=== PATIENT | male | born 1970 | race African-American/Black ===

== ENCOUNTER 2022-10-22 20:40 | Emergency (ER) | payer OTHER, SELFPAY ==
[2022-10-22 20:44] VITALS: BP 139/80; PULSE 70; RESP 16; TEMP 36.3; O2SAT 100
--- NOTE | 2022-10-22 21:56 | PC.NURSE ---
Patient is unable to see with his right eye and has been having discharge since yesterday. Patient states he noticed the discharge on his contact when he removed it. Patient's eye is not visibly red or any drainage seen by this RN
--- NOTE | 2022-10-22 22:55 | ED.EYEPROB ---
HPI - Eye Problem General Chief complaint: Eye Problems Stated complaint: eye infection Time Seen by Provider: 10/22/22 22:01 Source: patient Mode of arrival: ambulatory Limitations: no limitations History of Present Illness HPI Narrative: Patient is a 52 y/o male who presents to the ED with c/o L eye drainage. Patient reports having mild white discharge from his left eye for the past 2 days. He states he initially had a mild foreign body sensation, but denies any pain or discomfort currently. Patient is blind in his right eye. He wears contacts in his left eye. He denies changes in his vision in his left eye. He denies any fever. Related Data Allergies Allergy/AdvReac Type Severity Reaction Status Date / Time No Known Allergies Allergy Verified 10/22/22 20:42 Review of Systems Review of Systems: CONSTITUTIONAL: Denies fever, chills, or sweats. EYES: Reports left eye discharge. Denies visual changes. CARDIOVASCULAR: Denies chest pain. RESPIRATORY: Denies cough or dyspnea. SKIN: Denies rash or itching. All systems reviewed & are unremarkable except as noted in HPI and below PMFSH Past Medical History Medical History (Updated 10/22/22 @ 23:45 by Ayanna Barajas PA-C) Blindness of right eye Surgical History Surgical History (Updated 10/22/22 @ 23:45 by Ayanna Barajas PA-C) No pertinent past surgical history Social History Social History (Updated 10/22/22 @ 23:45 by Ayanna Barajas PA-C) Smoking status: Never smoker Exam Narrative: GENERAL: Well appearing, well-nourished, non-toxic, in no acute distress. HEAD: Normocephalic, atraumatic. EYES: PERRLA, EOMI. Minimal conjunctival injection of left eye. Mild amount of white discharge collected in corners of eyes. No matting of eyelids/eyelashes. No periorbital swelling. No discharge of R eye. No hyphema. No conjunctival hemorrhage. No signs of globe disruption or involvement. NECK: Supple. No adenopathy, no masses. RESPIRATORY: Airway patent, respirations nonlabored. CARDIOVASCULAR: Regular rate and rhythm without murmurs, rubs, or gallops. Radial pulses 2+ and equal bilaterally. MUSCULOSKELETAL: Moves all extremities. Strength/ROM intact without gross deformities. SKIN: Warm, dry, normal color. No rashes. NEURO: A&O X3. Speech clear. Cranial nerves II-XII grossly intact. Steady gait. No ataxic movements. PSYCHIATRIC: Appropriate mood and affect. Normal interaction. Course Vital Signs Vital signs: Vital Signs Temperature 97.4 F L 10/22/22 20:44 Pulse Rate 70 10/22/22 20:44 Respiratory Rate 16 10/22/22 20:44 Blood Pressure 139/80 10/22/22 20:44 Pulse Oximetry 100 10/22/22 20:44 Temperature 97.4 F L 10/22/22 20:44 Pulse Rate 70 10/22/22 20:44 Respiratory Rate 16 10/22/22 20:44 Blood Pressure 139/80 10/22/22 20:44 Pulse Oximetry 100 10/22/22 20:44 MDM - Eye Problem MDM Narrative Medical decision making narrative: Patient presented to ED with 2-day history of left eye discharge, contact lens wearer, blind in right eye. Did report foreign body sensation yesterday. Fluorescein staining and Mejia lamp examination revealed very small conjunctival abrasion in the 6 o'clock position below the iris. No corneal abrasion. Will prescribe ofloxacin eyedrops for management of conjunctivitis. Advised patient to follow-up with shot tube machine tender for further evaluation. Given reasons to return. Medical Records Attestation: I reviewed the patient's medical records. Discharge Plan Discharge Clinical Impression: Conjunctivitis Qualifiers: Conjunctivitis type: acute Acute conjunctivitis type: unspecified Laterality: left Qualified Code(s): H10.32 - Unspecified acute conjunctivitis, left eye Abrasion of conjunctiva, left Qualifiers: Encounter type: initial encounter Qualified Code(s): S05.02XA - Injury of conjunctiva and corneal abrasion without foreign body, left eye, initial encounter Patient Disposi
[2022-10-22] MEDS: FLUORESCEIN SOD 1 MG/STRIP (23:08)
[2022-10-22] MEDS: OFLOXACIN 0.3% OPHTH SOLN 5 ML BTL 1 DROP LEFT EYE (23:32)
== END 2022-10-22 23:36 | disposition home or self-care (01) ==
PROVIDERS: Emergency Provider Physician Assistant
DX: H10.32 Unspecified acute conjunctivitis, left eye (principal); S05.02XA Injury of conjunctiva and corneal abrasion without foreign body, left eye, initial encounter
CPT/HCPCS: 99283; A9270